=== PATIENT | male | born 1980 | race Caucasian/White ===

== ENCOUNTER 2016-07-14 19:12 | Emergency (ER) | payer MEDICAID ==
[~2016-07-14] VITALS: Ht 191.8 cm; Wt 111.6 kg
[~2016-07-14 19:12] MED LIST: ATIVAN GENERIC0.5 MG PO; BACTRIM DS 8001 TAB PO; FLEXERIL10 M1 PO; FLEXERIL10 MG PO; FLONASE 50 MCG16 GM; KEFLEX 500MG.500 MG PO; LISINOPRIL 10MG10 MG PO; LORTAB 5/500 501 TAB PO; MOBIC15 MG PO; NAPROXEN SODIU500 MG PO; NOMEDS XX; PHENERGAN 25MG.25 M1 PO; PREDNISONE 20MG20 MG PO; PROZAC10 MG PO; RIFAMPIN600 MG OR; TESSALON PERLE100 MG PO; ULTRAM50 MG PO; VISTARIL50 MG PO; XANAX 1MG TABLET1 MG PO; ZITHROMAX Z PA250 MG PO
[2016-07-14] MEDS ORDERED: BACTRIM DS 8001 TA1 PO (19:41)
--- NOTE | 2016-07-14 19:41 | Urgent Treatment Center Report ---
History of Present Issue Date/Time Seen by Provider 07/14/161928 Visit Reason Pt arrived:Walked Presenting Problem:PT STATES POSSIBLE SPIDER BITES TO BUTTOCK AND LEG. STATES FIRST NOTICED AREAS THREE DAYS AGO Location if Accident: Onset of symptoms date/time:/ or onset unknown for:MEDICAL HX UNKNOWN Have you (or family members/close friends) recently traveled outside the [place]? N If Yes, where/when: Have you had exposure to infectious disease within the past month? TB? Other? 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 No Angina: No ME: No Hypertension? Yes Hyperlipidemia? No CHF? No DVT? No PE? No COPD? No Asthma? No Anemia? No GERD? No Gastric ulcers? No GI Bleed? No Hernia? No Thyroid Problems? No Hypothyroidism? No CVA? No Seizures? No Diabetes? No Renal Insuffiency? No UTI? No Stones? No GB Disease: No Nephritic Syndrome? No Asplenia? No Hepatitis? Yes Sickle Cell Disease? No Arthritis? No Migraines? No Cataracts? No Glaucoma? No MRSA? No HIV? No TB? No Anxiety? No Depression? No Cancer? No Immunization HX DT/Tetanus 5-10 YRS Surgical Hx Previous Surgery?N Social History Smoking Hx Smoker: Current Every Day Smoker Tobacco: Yes Type Cigarettes Packs/day < 1 Pack Alcohol Alcohol: No Review of Systems All Other Systems Reviewed and Negative Skin other Comment large swollen hard area on upper buttock area, 2 smaller red round areas on right leg Physical Exam Vital Signs Vital Signs Date Time Temp Pulse Resp B/P Pulse O2 O2 Flow FiO2 Ox Delivery Rate 07/15 1919 97.7 94 18 131/68 95 General Appearance normal appearance, WD/WN, no apparent distress Respiratory Status Yes: trachea midline, chest symmetrical, non tender chest. No: respiratory distress. Cardiovascular normal exam, regular rate/rhythm, no peripheral edema, no gallop Neurologic alert, blending tank tender II-XII nml as tested, normal exam, no motor/sensory deficits, oriented x 3 Skin lesions, Raised lesion on right upper buttock area red in color with black center where patient has been mashing on it to drain, area around the size of an small orange with possible tunneling, 2 other small marysol sized lesions with black in the middle where patient has been trying to open them and get them to drain Comments Patient state that lesions have been there for around 3 days states that he has opened them and got them to drain just a little and now they area red and swollen Medical Decision Making LABS/Meds/Orders Pt receiving controlled substance in ED? No Results/Orders Current Medication Orders Sig/Germain Start time Last Medication Dose Route Stop Time Status Admin Trimethoprim/ 0 .STK-MED ONE 07/14 1938 DC Sulfamethoxazole PO Departure Departure Time of Disposition 1934 Disposition DC Home or Self Care(routine) Clinical Impression Primary Impression: Abscess Condition STABLE Referrals Sang Mullen MD: Tomorrow-Call Office Schedule appointment as soon as possible for incision and drainage Aly BLACK,[place] (Family) ALEJANDRO BLACK,[place]: Tomorrow-Call Office Schedule appointment for as soon as possible with one of the surgeons for evaluation for possible incision and drainage Patient Instructions DI for Cellulitis -- Adult Additional Instructions Call surgical clinic in the morning and make appointment as soon as possible for one evaluation of abcess area as advised. The names of the surgeons are listed above. Or Follow up with family doctor for referral to surgical clinic if needed Take antibiotics as prescribed Over the counter Motrin or Tylenol as needed for fever or pain Return if needed to the [facility] Discharge Counseling Counseled pt/family regarding diagnosis, medications/RX, home care, follow up needs Prescriptions Current Visit Scripts SULFAMETHOXAZOLE W/TRIMETHOPRI (Bactrim Ds Tab) 1 TABLET PO BID #20 TAB at 1941
[2016-07-14 19:45] VITALS: BP 131/68
== END 2016-07-14 19:46 | disposition home or self-care (01) ==
LOC: UTC 19:12
DX: L02.31 Cutaneous abscess of buttock (principal)

== ENCOUNTER → 2016-08-21 | Outpatient (CLI) | payer MEDICAID ==
[~2016-08-21] MED LIST changes: +BACTRIM DS 8001 TA1 PO
== END ==
LOC: LAB 13:50
DX: S61.401A Unspecified open wound of right hand, initial encounter (principal)